=== PATIENT | female | born 1995 | race African-American/Black ===

== ENCOUNTER 2019-04-21 19:18 | Inpatient (IN) ==
[2019-04-21] MEDS ORDERED: DUONEB (A & A) INH ONE (19:49)
[2019-04-21 20:14] LABS: BE 3.9 mmoll (-3.0-3.0); BLOOD TYPE ARTERIAL; HCO3-(ACT) 27.8 mmoll (20.0-26.0); METHB 1.2 % (0.0-1.5); O2(CT) 13.6 mL/dL (15.0-23.0); PCO2(98.6) 37 mmHg (35-45); PO2(98.6) 56 mmHg (60-100); SAMPLE BLOOD; SAO2 93.6 % (95.0-100.0); THB 10.7 g/dL (11.5-17.4); pH(98.6) 7.48 (7.35-7.45)
[2019-04-21 20:15] LABS: ALLEN TEST YES; MODALITY CANNULA
--- NOTE | 2019-04-21 20:16 | Diag Imaging Result Doc PS360 ---
EXAM: CHEST-2 VIEWS HISTORY: SOB TECHNIQUE: Two views COMPARISON: 01/24/2015 FINDINGS: Poor inspiratory effort. There are dense bilateral infiltrates. No cardiomegaly. There may be tiny effusions. IMPRESSION: Multifocal bilateral pneumonia. Electronically signed by Jake Irene 04/21/2019 8:13 PM
[2019-04-21] MEDS ORDERED: ROCEPHIN 2 GM in NS 50 ML IV ONE (20:25)
[2019-04-21] MEDS ORDERED: ROCEPHIN 1 GM in NS 50 ML IV ONE (20:25)
[2019-04-21 20:29] LABS: BASO# 0.02 X1000 (0.0-0.2); BASO% 0.3 % (0.0-0.8); HEMATOCRIT 31.1 % (37.0-47.0); HEMOGLOBIN 10.2 g/dL (12.0-16.0); IMM GRAN# 0.01 X1000 (0.0-0.04); IMM GRAN% 0.2 % (0.0-0.5); LYMPH# 1.29 X1000 (1.2-3.4); LYMPH% 21.9 % (20.5-51.1); MCH 26.8 PG (27-31); MCHC 32.8 g/dL (33-37); MCV 81.8 FL (81-99); MONO# 0.34 X1000 (0.11-0.59); MONO% 5.8 % (1.7-9.3); MPV 10.1 FL (7.4-10.4); NEUT# 4.24 X1000 (1.4-6.5); NEUT% 71.8 % (42.2-75.2); PLT 225 X1000 (130-400); RDW 13.4 % (11.5-14.5)
[2019-04-21 20:44] LABS: INR 1.05; PROTIME 14.2 Seconds (11.0-16.0)
[2019-04-21 20:45] LABS: PTT 31.2 Seconds (22.3-41.8)
--- NOTE | 2019-04-21 20:46 | PROVIDER DOCUMENTATION ---
This chart was entered by Faith Loredo Scribe, acting as scribe for Aysha Leyva CRNP. HPI-Respiratory General - General Chief Complaint: Shortness of Breath Stated Complaint: SOB Time Seen by Provider: 04/21/19 19:48 Source: patient, family Allergies/Adverse Reactions: Patient Allergies Allergy/AdvReac Type Severity Reaction Status Date / Time No Known Allergies Allergy Verified 04/21/19 19:32 Home Medications: Home Medication List Medication Instructions Recorded Confirmed Last Taken Type Gabapentin 1 cap PO TID 07/09/17 04/21/19 Unknown History Metformin [Glucophage] 1,000 mg PO BID CC 07/09/17 04/21/19 Unknown History Carvedilol [Coreg] 3.125 mg PO BID 04/21/19 04/21/19 Unknown History Cholecalciferol (Vitamin D3) 1,250 mcg PO DIRECTED 04/21/19 04/21/19 Unknown History [Vitamin D3] - History of Present Illness-Resp Nature of Presenting Problem: 24 YOF WITH PMH OF DM AND HTN PRESENTS WITH C/O FEELING WORSE, SOB AFTER DX OF URI. C/O FEVER, COUGH, WEAKNESS, CHILLS, SOB Quality of Pain: reports: aching, tightness Severity in ED: reports: severe Onset/Duration: reports: gradual, 2 days ago Timing: reports: still present, constant, getting worse Context: reports: recent URI Cough Quality/Degree: reports: moderate, dry cough Current Respiratory Medication Therapy: Initiated see nurses note Modifying Factors: worse with: exertion, coughing Associated Symptoms: reports: cough, fever/chills, shortness of breath, wheezing Similar Symptoms Previously?: Yes Recently seen or treated by another doctor?: Yes Review of Systems - Adult - REVIEW OF SYSTEMS - ADULT Constitutional: reports: see HPI, fever. denies: chills Eyes: reports: no symptoms reported. denies: see HPI, discharge, dry eyes, decreased vision, blurred vision, double vision, eye pain, redness, other Ears, Nose, Mouth & Throat: reports: no symptoms reported. denies: see HPI, ear discharge, ear pain, hearing loss, tinnitus, epistaxis, sinus problem, nose pain, loose teeth, mouth/dental pain, mouth swelling, hoarseness, throat pain, throat swelling, other Cardiovascular: reports: see HPI. denies: syncope Respiratory: reports: see HPI, cough, shortness of breath, wheezing. denies: no symptoms reported, chronic cough, dyspnea on exertion, excessive sputum production, hemoptysis, pleurisy, other Gastrointestinal: reports: no symptoms reported. denies: abdominal pain, diarrhea, nausea, vomiting Genitourinary: reports: no symptoms reported. denies: see HPI, dysuria, discharge, frequency, flank pain, frequent UTI's, hematuria, hesitency, incontinence, urinary retention, urgency, other Musculoskeletal: reports: no symptoms reported. denies: see HPI, bone pain, ba ck pain, frequent leg cramps, joint pain, joint swelling, muscle aches, muscle weakness, neck pain, other Integumentary: reports: no symptoms reported. denies: see HPI, hives, hair loss, itching, mole changes, nail changes, rash, skin sores/ulcer, skin thickening, other Neurological: reports: see HPI Psychiatric: reports: no symptoms reported. denies: see HPI, anxiety, anti- depressant use, alcohol/drug dependence, depression, emotional problems, insomnia, panic attacks, suicidal thoughts, other Endocrine: reports: no symptoms reported. denies: see HPI, change in skin pigment, excessive sweating, goiter, cold intolerance, heat intolerance, increased hunger, increased thirst, polyuria, other Hematologic/Lymphatic: reports: no symptoms reported. denies: see HPI, blood clots, easy bruising, low blood count, lymphedema, prolonged bleeding, swollen lymph nodes, transfusions, other Allergic/Immunologic: reports: no symptoms reported. denies: see HPI, allergic reactions, allergic rhinitis, asthma, eczema, food allergy, frequent infections, hay fever, hives, positive PPD, urticaria, other All Other Systems: Reviewed and Negative Past History - Adult - PAST MEDICAL HISTORY-ADULT Review of Records: reports: Old Records Reviewed, Nursing Assessment Review, Medications Reviewed, Social history reviewed & non-contributory. Major Childhood Illnesses: reports: denies history Cardiovascular: reports: HTN Respiratory: reports: denies history Gastrointestinal: reports: denies history Obstetrical/Gynecological: reports: denies history Genitourinary: reports: denies history Musculoskeletal: reports: denies history Neurological: reports: denies history Endocrine/Immune: reports: Diabetes Other Conditions: reports: denies history - PRIOR SURGERIES/PROCEDURES Surgical/Procedure History: reports: cholecystectomy, tonsillectomy, other (left knee about 2009 last 2010) - IMMUNIZATION STATUS Childhood Immunizations: See Nurse Assessment Flu Vaccine: See Nurse Assessment - FAMILY HISTORY Family History: reviewed, not pertinent - SOCIAL HISTORY Smoking: quit less than 1 year Substance Use: denies Living Situation: family Physical Exam-General - PHYSICAL EXAM-ADULT Initial Vital Signs Reviewed: Yes (Temp 102.6; HR 126; O2 81 RA) - CONSTITUTIONAL General Appearance: alert, mild distress, obese - EYES Eyes: PERRL/EOMI, pink conjunctivae - HEAD, EARS, NOSE, MOUTH & THROAT HENMT: normocephalic/atraumatic, moist mucous membranes, normal ENT inspection - NECK Neck: non-tender, full range of motion, supple, normal inspection - RESPIRATORY Respiratory: crackles (bilateral), wheezing (bilateral) - CARDIOVASCULAR Cardiovascular: normal peripheral pulses, tachycardia - GASTROINTESTINAL (ABDOMEN) Abdominal Exam: normal bowel sounds, non tender, soft, no organomegaly, no pulsatile mass - LYMPHATIC Lymphatic: no adenopathy - MUSCULOSKELETAL Back Exam: normal inspection, no CVA tenderness, no vertebral tenderness Extremity: normal range of motion, non-tender, normal gait, normal inspection, no pedal edema, no calf tenderness - SKIN Integumentary: normal color, normal turgor, warm/dry - NEUROLOGIC Neurologic: grossly normal. negative: abnormal gait, aphasia, facial droop - PSYCHIATRIC Psych/Mental Status: normal mood/affect, normal thought content, normal thought process, oriented x 3 Progress - PLAN OF CARE/RESULTS Progress/Plan/Lab Results: Vital Signs - 8 hr 04/21/19 19:28 04/21/19 20:04 Temperature 102.6 F H Pulse Rate 126 H 121 H Respiratory Rate 20 18 Blood Pressure 164/103 O2 Sat by Pulse Oximetry 81 L 90 L Laboratory Results - last 24 hr 04/21/19 04/21/19 04/21/19 20:01 20:14 20:14 WBC 5.90 RBC 3.80 L Hgb 10.2 L Hct 31.1 L MCV 81.8 MCH 26.8 L MCHC 32.8 L RDW Std Deviation 13.4 Plt Count 225 MPV 10.1 Immature Gran % (Auto) 0.2 Neut % (Auto) 71.8 Lymph % (Auto) 21.9 Crisp % (Auto) 5.8 Eos % (Auto) 0.0 Baso % (Auto) 0.3 Immature Gran # (Auto) 0.01 Neut # (Auto) 4.24 Lymph # (Auto) 1.29 Crisp # (Auto) 0.34 Eos # (Auto) 0.00 Baso # (Auto) 0.02 PT INR PTT (Actin FS) Specimen Type ARTERIAL Sample Site L RADIAL pH 7.48 H pCO2 37 pO2 56 L HCO3 27.8 H Base Excess 3.9 H Oxyhemoglobin 90.0 L ABG O2 Sat (Calculated) 13.6 L ABG O2 Saturation 93.6 L ABG Carboxyhemoglobin 2.60 H ABG Methemoglobin 1.2 Vel Test YES A-a O2 Difference 97.0 Total Hemoglobin 10.7 L Lactate 1.90 Liter Flow 2.0 Blood Gas Modality CANNULA FiO2 % 28.0 Sodium 139 Potassium 3.4 L Chloride 98 Carbon Dioxide 25 Anion Gap 16 BUN 5 L Creatinine 0.7 Estimated GFR/1.73 m2 > 60 BUN/Creatinine Ratio 7 Glucose 167 H Calculated Osmolality 279 Calcium 8.7 L Magnesium 1.0 L* Total Bilirubin 0.60 AST 24 ALT 42 H Alkaline Phosphatase 46 Creatine Kinase 300 H Creatine Kinase Index 0.3 CK-MB (CK-2) 1.00 Troponin T High Sens [id number] Pept Total Protein 7.0 Albumin 4.1 Globulin 3.0 Albumin/Globulin Ratio 1.0 Plasma Lactate Urine Source Urine Color Urine Turbidity Urine pH Ur Specific [place] Urine Protein Ur Glucose (Stick) Ur Ketones (Stick) Urine Blood Urine Nitrite Urine Bilirubin Urobilinogen Dipstick Urine Leukocytes Acetone Level 04/21/19 04/21/19 04/21/19 20:14 20:14 20:14 WBC RBC Hgb Hct MCV MCH MCHC RDW Std Deviation Plt Count MPV Immature Gran % (Auto) Neut % (Auto) Lymph % (Auto) Crisp % (Auto) Eos % (Auto) Baso % (Auto) Immature Gran # (Auto) Neut # (Auto) Lymph # (Auto) Crisp # (Auto) Eos # (Auto) Baso # (Auto) PT 14.2 INR 1.05 PTT (Actin FS) 31.2 Specimen Type Sample Site pH pCO2 pO2 HCO3 Base Excess Oxyhemoglobin ABG O2 Sat (Calculated) ABG O2 Saturation ABG Carboxyhemoglobin ABG Methemoglobin Vel Test A-a O2 Difference Total Hemoglobin Lactate Liter Flow Blood Gas Modality FiO2 % Sodium Potassium Chloride Carbon Dioxide Anion Gap BUN Creatinine Estimated GFR/1.73 m2 BUN/Creatinine Ratio Glucose Calculated Osmolality Calcium Magnesium Total Bilirubin AST ALT Alkaline Phosphatase Creatine Kinase Creatine Kinase Index CK-MB (CK-2) Troponin T High Sens 6 [id number]-[id number] Pept Total Protein Albumin Globulin Albumin/Globulin Ratio Plasma Lactate Urine Source Urine Color Urine Turbidity Urine pH Ur Specific [place] Urine Protein Ur Glucose (Stick) Ur Ketones (Stick) Urine Blood Urine Nitrite Urine Bilirubin Urobilinogen Dipstick Urine Leukocytes Acetone Level NEGATIVE 04/21/19 04/21/19 04/21/19 20:14 20:14 22:15 WBC RBC Hgb Hct MCV MCH MCHC RDW Std Deviation Plt Count MPV Immature Gran % (Auto) Neut % (Auto) Lymph % (Auto) Crisp % (Auto) Eos % (Auto) Baso % (Auto) Immature Gran # (Auto) Neut # (Auto) Lymph # (Auto) Crisp # (Auto) Eos # (Auto) Baso # (Auto) PT INR PTT (Actin FS) Specimen Type Sample Site pH pCO2 pO2 HCO3 Base Excess Oxyhemoglobin ABG O2 Sat (Calculated) ABG O2 Saturation ABG Carboxyhemoglobin ABG Methemoglobin Vel Test A-a O2 Difference Total Hemoglobin Lactate Liter Flow Blood Gas Modality FiO2 % Sodium Potassium Chloride Carbon Dioxide Anion Gap BUN Creatinine Estimated GFR/1.73 m2 BUN/Creatinine Ratio Glucose Calculated Osmolality Calcium Magnesium Total Bilirubin AST ALT Alkaline Phosphatase Creatine Kinase Creatine Kinase Index CK-MB (CK-2) Troponin T High Sens [id number]-Bdgapwlmpdi Pept 250 H Total Protein Albumin Globulin Albumin/Globulin Ratio Plasma Lactate 2.0 Urine Source CLEAN CATCH Urine Color YELLOW Urine Turbidity CLEAR Urine pH 6.5 Ur Specific [place] 1.021 Urine Protein 300 A Ur Glucose (Stick) NEGATIVE Ur Ketones (Stick) NEGATIVE Urine Blood SMALL A Urine Nitrite POSITIVE A Urine Bilirubin NEGATIVE Urobilinogen Dipstick NORMAL Urine Leukocytes NEGATIVE Acetone Level Orders Category Date Time Status Cardiac Monitoring DIRECTED Care 04/21/19 19:35 Active IV Insertion ORDERED Care 04/21/19 19:35 Completed Notify MD of + Sepsis Screen NOW Care 04/21/19 19:35 Active Notify Physician As Ordered Care 04/21/19 19:35 Active cxr [CHEST-2 VIEWS] [RAD] Stat Exams 04/21/19 19:51 Completed ABG [RESP] Routine Lab 04/21/19 20:01 Completed ACETONE SERUM [CHEM] Stat Lab 04/21/19 20:14 Completed BLOOD CULTURE [BLDCUL] Stat Lab 04/21/19 20:14 Results BNP [PRO B-NATRIURETIC PEPTIDE] Stat Lab 04/21/19 20:14 Completed CBC WITH DIFF [HEME] Stat Lab 04/21/19 20:14 Completed CK PROFILE [SP CHEM] Stat Lab 04/21/19 20:14 Completed COMPREHENSIVE METABOLIC PANEL [CHEM] Stat Lab 04/21/19 20:14 Completed LACTATE, PLASMA [CHEM] Lab 04/21/19 20:14 Completed LACTATE, PLASMA [CHEM] Lab 04/21/19 22:45 Uncollected LACTATE, PLASMA [CHEM] Lab 04/22/19 01:45 Uncollected MAGNESIUM [CHEM] Stat Lab 04/21/19 20:14 Completed PROTIME WITH INR [COAG] Stat Lab 04/21/19 20:14 Completed PTT [COAG] Stat Lab 04/21/19 20:14 Completed TROPONIN T HIGH SENSITIVITY Stat Lab 04/21/19 20:14 Completed URINALYSIS W/POSS RFLX CULT [URINALYSIS] Stat Lab 04/21/19 22:15 Results 0.9% Sodium Chloride Inj [Ns] 50 ml Med 04/21/19 22:35 Discontinued .ROUTE As directed Albuterol 2.5MG/Ipratrop 0.5MG [Duoneb (A & A)] Med 04/21/19 19:49 Discontinued 3 ml INH NOW ONE CefTRIAXONE [Rocephin] Med 04/21/19 22:35 Discontinued 1 gm .ROUTE .STK-MED ONE CefTRIAXONE [Rocephin] 1 gm Med 04/21/19 20:25 Discontinued 0.9% Sodium Chloride Inj [Ns] 50 ml IV NOW CefTRIAXONE [Rocephin] 2 gm Med 04/21/19 20:25 Discontinued 0.9% Sodium Chloride Inj [Ns] 50 ml IV NOW Magnesium Sulfate 2 gm/S.w.i. Med 04/21/19 21:42 Discontinued 2 gm in 50 ml IV NOW Aerosol Treatments Routine Oth 04/21/19 19:49 Completed Aerosol Treatments Stat Oth 04/21/19 19:49 Completed Oxygen Device Stat Oth 02/08/20 19:35 Active Result Diagrams: 04/21/19 20:14 04/21/19 20:14 - REASSESSMENT Reassessment #1 Time Reassessed: 20:15 Status: unchanged Reassessment Comment: KAYCE at bedside discussing POC - XRAY 1 XRAY Study: Chest Impression: See EMR Report (EXAM: CHEST-2 VIEWS HISTORY: SOB TECHNIQUE: Two views COMPARISON: 01/24/2015 FINDINGS: Poor inspiratory effort. There are dense bilateral infiltrates. No cardiomegaly. There may be tiny effusions. IMPRESSION: Multifocal bilateral pneumonia. Electronically signed by Jake Irene 04/21/2019 8:13 PM 04/21/192012 Interpreting Physician: Jake Irene MD Dictated Date/Time: 04/21/192012 cc: Aysha Leyva; None,PCP) - CONSULTS/PCP/HOSPITALIST Notification #1 *Consult/PCP/Hospitalist*: Dr. Conrad Time Discussed: 22:16 Consult Disposition: Admit Departure - Departure Date of Disposition Decision: 04/21/19 Time of Disposition Decision: 22:45 DIAGNOSIS: Hypoxia, Pneumonia, Hypomagnesemia, UTI (urinary tract infection) Disposition: HOME 01 Certified Medical Emergency: Emergent Condition: Stable Referrals and Follow-Ups: None,PCP [Primary Care Provider] - - Critical Care Note This patient required my direct & personal management of CC.: No Attestation - Physician/ KAYCE Attestation Patient care was provided by Advanced Practice Provider:: Yes Advanced Practice Provider:: Aysha Leyva Advanced Practice Provider documentation review:: The Mid-level provider documentation, treatment plan and medical decision making was reviewed by the physician who agrees with all treatment and medical decision making by the MLP. The physician spent face to face time with patient:: No Advanced Practice Provider documentation review:: Supervising physician onsite and consulted in the evaluation and care of this patient. The physician did not have a face to face encounter with the patient. This chart was documented by the indicated scribe, (Faith Loredo Scribe) and accurately reflects the services I performed and decisions made by me, Aysha Leyva CRNP, as attested by the provider's signature.
[2019-04-21 20:53] LABS: ESTIMATED GFR > 60
[2019-04-21 21:41] LABS: AGAP 16; ALBUMIN 4.1 g/dL (3.5-5.0); BUN 5 mg/dL (8-22); CALCIUM 8.7 mg/dL (8.8-10.2); CHLORIDE 98 mmol/L (98-107); CK PROFILE 300 U/L (24-173); COSMO 279; CREATININE 0.7 mg/dL (0.5-0.9); GLUCOSE 167 mg/dL (70-104); GOT 24 U/L (10-30); GPT 42 U/L (10-36); POTASSIUM 3.4 mmol/L (3.5-5.1); SODIUM 139 mmol/L (136-145); TCO2 25 mmol/L (25-35)
[2019-04-21] MEDS ORDERED: MAGNESIUM SULFATE 2 GM/S.W.I. 2 GM/50 ML IVPB IV ONE (21:42)
[2019-04-21 22:08] LABS: ALKALINE PHOSPHATASE 46 U/L (32-104)
[2019-04-21 22:10] LABS: CK INDEX 0.3 (0.0-2.5)
[2019-04-21 22:26] LABS: URINE SOURCE CLEAN CATCH
[2019-04-21] MEDS ORDERED: ROCEPHIN ONE (22:35)
[2019-04-21] MEDS ORDERED: NS 50 ML ONE (22:35)
[2019-04-21 22:44] LABS: BILIRUBIN URINE NEGATIVE (NEGATIVE); BLOOD URINE SMALL (NEGATIVE); COLOR YELLOW; GLUCOSE URINE NEGATIVE (NEGATIVE); KETONE URINE NEGATIVE (NEGATIVE); LEUKOCYTES URINE NEGATIVE (NEGATIVE); NITRITE URINE POSITIVE (NEGATIVE); PH URINE 6.5; PROTEIN URINE 300 mg/dL (NEGATIVE); SP GRAVITY URINE 1.021; TURBIDITY URINE CLEAR (CLEAR); UROBILINOGEN URINE NORMAL (NORMAL)
[2019-04-21 22:45] LABS: UR EPITHELIAL CELLS <10 /HPF (<10); URINE BACTERIA 4+ /HPF; URINE RBC <10 /HPF (<10); URINE WBC <10 /HPF (<10)
[2019-04-21] MEDS ORDERED: TYLENOL PO ONE (22:46)
[2019-04-21] MEDS ORDERED: NS 1,000 ML IV ONE (22:46)
[2019-04-21] MEDS ORDERED: TYLENOL PO PRN (22:46)
[2019-04-21] MEDS: DUONEB (A & A) INH SCH (23:04)
[2019-04-22] MEDS ORDERED: SOLU-MEDROL IV ONE (00:24)
[2019-04-22] MEDS ORDERED: COREG PO ONE (00:41)
[2019-04-22 00:51] LABS: BE 4.6 mmoll (-3.0-3.0); BLOOD TYPE ARTERIAL; HCO3-(ACT) 28.4 mmoll (20.0-26.0); METHB 1.6 % (0.0-1.5); O2(CT) 13.4 mL/dL (15.0-23.0); O2HB 91.5 % (95.0-99.0); PCO2(98.6) 37 mmHg (35-45); PO2(98.6) 61 mmHg (60-100); SAMPLE BLOOD; SAO2 95.1 % (95.0-100.0); THB 10.4 g/dL (11.5-17.4); pH(98.6) 7.49 (7.35-7.45)
[2019-04-22 00:52] LABS: ALLEN TEST NO; MODALITY CANNULA
[2019-04-22] MEDS ORDERED: COREG ONE (01:31)
[2019-04-22] MEDS: DUONEB (A & A) INH SCH ×6 (03:02→23:00)
[2019-04-22] MEDS ORDERED: HUMALOG SUBQ SCH (07:00)
[2019-04-22] MEDS ORDERED: HUMALOG (PARKWAY) ONE (07:46)
[2019-04-22 10:29] LABS: HEMATOCRIT 31.6 % (37.0-47.0); HEMOGLOBIN 10.2 g/dL (12.0-16.0); MCH 26.4 PG (27-31); MCHC 32.3 g/dL (33-37); MCV 81.7 FL (81-99); MPV 10.8 FL (7.4-10.4); RBC 3.87 XMIL (4.2-5.4); RDW 13.3 % (11.5-14.5); WBC 6.19 X1000 (4.8-10.8)
[2019-04-22 10:55] LABS: AGAP 16; ALBUMIN 3.9 g/dL (3.5-5.0); ALKALINE PHOSPHATASE 49 U/L (32-104); BUN 6 mg/dL (8-22); CALCIUM 8.2 mg/dL (8.8-10.2); CHLORIDE 99 mmol/L (98-107); COSMO 288; CREATININE 0.5 mg/dL (0.5-0.9); ESTIMATED GFR > 60; GLUCOSE 288 mg/dL (70-104); GOT 34 U/L (10-30); GPT 47 U/L (10-36); MAGNESIUM 1.4 mg/dL (1.5-2.7); SODIUM 140 mmol/L (136-145); TCO2 25 mmol/L (25-35); TOTAL PROTEIN 7.4 g/dL (6.3-8.3)
[2019-04-22] MEDS: ROCEPHIN 1 GM in NS 50 ML IV SCH (11:52)
[2019-04-22] MEDS: NEURONTIN PO SCH ×3 (11:52→21:35)
[2019-04-22] MEDS: ZITHROMAX PO SCH (11:53)
[2019-04-22] MEDS ORDERED: NEURONTIN PO SCH (13:00)
[2019-04-22] MEDS: HUMALOG (PARKWAY) SUBQ SCH ×3 (13:31→21:35)
[2019-04-22] MEDS: GLUCOPHAGE PO SCH (17:23)
--- NOTE | 2019-04-22 19:04 | HISTORY AND PHYSICAL ---
CHIEF COMPLAINT: Shortness of breath with cough and fever. HISTORY OF PRESENT ILLNESS: This is a 24-year-old female with a history of diabetes type 2, hypertension, who presents to the emergency room complaining of shortness of breath for the last 48 hours. She stated that it has progressively gotten worse. She had along with fevers, a productive cough, chills. PAST MEDICAL HISTORY: Is diabetes mellitus type 2, hypertension, and neuropathy. PAST SURGICAL HISTORY: Cholecystectomy, tonsillectomy, adenoidectomy. SOCIAL HISTORY: She denies any tobacco or illicit drug use. She does drink alcohol occasionally socially. ALLERGIES: No known drug allergies. HOME MEDICATIONS: Coreg, vitamin D3, gabapentin, and metformin. REVIEW OF SYSTEMS: Discussed with patient with pertinent positives stated in the HPI. She denied any syncope or dizziness, any chest pain or palpitations, a productive cough, hemoptysis, any nausea, vomiting, diarrhea, constipation, any black or bloody vomitus or stools, hematuria, dysuria, frequency, urgency. PHYSICAL EXAMINATION: GENERAL: This is a 24-year-old female who is sitting up on the bedside in no distress. VITAL SIGNS: Blood pressure is 142/80 with a heart rate of 80, respirations are 16, temperature is 98.6 degrees oral with O2 saturations that are 96 to 97 percent on 4 L nasal cannula. EYES: Pupils are equal, round, react to light. EOMs are intact. Sclerae are anicteric. HEENT: Head is normocephalic, atraumatic. Mucous membranes are moist. NECK: Supple with trachea midline. CARDIOVASCULAR: Regular rate and rhythm. S1 and S2 appreciated. She has no lower extremity edema. Calves are nontender bilateral with peripheral pulses palpable x4 extremities. PULMONARY: Breath sounds are diminished throughout. Chest rises and falls symmetric with respiration. Chest wall is nontender to palpation. GASTROINTESTINAL: Abdomen is soft, nontender, nondistended with bowel sounds in all 4 quadrants. GENITOURINARY: No CVA or suprapubic tenderness. NEUROLOGIC: She is alert and oriented x3. SKIN: Warm and dry. LABS: WBC is 6.1 with hemoglobin 10.2, hematocrit 31.6, and platelets of 253,000. Sodium 140, potassium 4, BUN 6, creatinine 0.5 with a glucose of 288. Magnesium is 1.4. Acetone is negative. Urinalysis is positive for nitrite with less than 10 microscopic red blood cells, white blood cells and epithelial cells. ABGs: PH is 7.49 with a pCO2 of 37, PO2 of 61, and bicarbonate of 28.4. This is on 4 L nasal cannula. Chest x-ray revealed multifocal bilateral pneumonia. ASSESSMENT AND PLAN: 1. Bilateral pneumonia. Blood cultures were obtained in the emergency room. She was given Rocephin, which we will continue. We will add azithromycin and further antibiotics will be culture driven. 2. Hypoxemic respiratory failure. We will continue with supplemental oxygen and follow. We will add incentive spirometer q.4 hours. 3. Diabetes mellitus type 2. Identify her home medications and continue as appropriate at pattern blood glucose with sliding scale insulin. 4. Hypomagnesemia. We will replete, trend labs and treat as appropriate. 5. Possible urinary tract infection. We will add antibiotics as above and further antibiotics will be culture driven. 6. Hypertension. We will continue her home medications. 7. Neuropathy. Aware. 8. For deep vein thrombosis prophylaxis we will use sequential compression devices and have the patient up in the chair. The plan was discussed with Dr. Guzman. Further treatments pending hospital course. Dictated by RADHA Russell for Bright Guzman MD cc: RADHA Russell MD
[2019-04-22] MEDS: COREG PO SCH (21:35)
[2019-04-22] MEDS ORDERED: CHLORASEPTIC SPRAY MT PRN (21:38)
--- NOTE | 2019-04-23 00:44 | HISTORY AND PHYSICAL ---
ADDENDUM: Patient is a morbidly obese 24-year-old female who presented to the hospital with increased cough, congestion, increased work of breathing. She has got a history of diabetes, hypertension. We are going to place her on antibiotics. Her magnesium is low. We are going to replace this. Use breathing treatments. Her O2 saturation was 81% on room air when she initially presented to the ER, currently is 90% on 2 L. She does have pneumonia. We will use antibiotics and we will follow. cc: Bright Guzman MD
[2019-04-23] MEDS: DUONEB (A & A) INH SCH ×6 (03:23→22:42)
[2019-04-23] MEDS: NEURONTIN PO SCH ×3 (06:25→21:43)
[2019-04-23] MEDS: HUMALOG (PARKWAY) SUBQ SCH ×4 (06:25→21:43)
[2019-04-23 06:40] LABS: HEMATOCRIT 29.6 % (37.0-47.0); HEMOGLOBIN 9.4 g/dL (12.0-16.0); MCH 26.2 PG (27-31); MCHC 31.8 g/dL (33-37); MCV 82.5 FL (81-99); MPV 10.4 FL (7.4-10.4); RBC 3.59 XMIL (4.2-5.4); RDW 13.4 % (11.5-14.5); WBC 6.9 X1000 (4.8-10.8)
[2019-04-23 07:03] LABS: AGAP 13; ALBUMIN 3.7 g/dL (3.5-5.0); ALKALINE PHOSPHATASE 46 U/L (32-104); BUN 10 mg/dL (8-22); CALCIUM 8.4 mg/dL (8.8-10.2); CHLORIDE 102 mmol/L (98-107); COSMO 286; CREATININE 0.5 mg/dL (0.5-0.9); ESTIMATED GFR > 60; GLUCOSE 161 mg/dL (70-104); GOT 32 U/L (10-30); GPT 46 U/L (10-36); MAGNESIUM 1.6 mg/dL (1.5-2.7); POTASSIUM 3.6 mmol/L (3.5-5.1); SODIUM 142 mmol/L (136-145); TCO2 27 mmol/L (25-35)
[2019-04-23] MEDS: GLUCOPHAGE PO SCH ×2 (10:09→17:45)
[2019-04-23] MEDS: ROCEPHIN 1 GM in NS 50 ML IV SCH (10:09)
[2019-04-23] MEDS: ZITHROMAX PO SCH (10:10)
[2019-04-23] MEDS: COREG PO SCH ×2 (10:10→21:43)
--- NOTE | 2019-04-23 20:22 | PROGRESS NOTE ---
DATE: 04/23/2019 SUBJECTIVE: Patient notes that she is starting to feel a little bit better. Her cough, although productive, is improving. She denies any fevers or chills. EXAM: Vital signs: Temperature 98 degrees, pulse 95, respiratory rate 18, BP 125/68. General: The patient is a morbidly obese female who currently is in mild respiratory distress. She is awake, alert. She is sitting up on the bed. She is talking to her mom. HEENT: Normocephalic. Neck: Supple. Cardiovascular: Regular rate. Chest: Clear, nonlabored. Abdomen: Soft, nondistended. Extremities: Moves all extremities. Neurologic: No changes. ASSESSMENT: 1. Bilateral pneumonia, improved air movement bilaterally, although difficult to hear secondary to body habitus. She does not currently have any wheezing or crackles. 2. Diabetes. 3. Morbid obesity. 4. Hypomagnesemia, resolved. 5. Urinary tract infection growing gram-negative rods. Continue antibiotics until culture returns. 6. Hypertension. PLAN: We will continue the patient in the hospital. We will attempt to wean off her oxygen as tolerated. Continue antibiotics. Further orders as needed. Hopefully, she can discharge home over the next 1 or 2 days if her symptoms continue to improve. cc: Bright Guzman MD
[2019-04-24] MEDS: DUONEB (A & A) INH SCH ×6 (02:56→22:53)
[2019-04-24] MEDS: NEURONTIN PO SCH ×3 (06:24→21:19)
[2019-04-24] MEDS: HUMALOG (PARKWAY) SUBQ SCH ×4 (06:25→21:19)
[2019-04-24] MEDS: ZITHROMAX PO SCH (09:39)
[2019-04-24] MEDS: GLUCOPHAGE PO SCH ×2 (09:39→16:38)
[2019-04-24] MEDS: ROCEPHIN 1 GM in NS 50 ML IV SCH (09:39)
[2019-04-24] MEDS: COREG PO SCH ×2 (09:39→21:19)
--- NOTE | 2019-04-25 00:14 | PROGRESS NOTE ---
DATE: 04/24/2019 SUBJECTIVE: The patient overall notes that she is feeling a lot better. Still having some shortness of breath and coughing, but this is improved. Denies any fevers, chills. Denies cough, congestion. PHYSICAL EXAMINATION: Vital Signs: Reviewed. She is afebrile. She is still on oxygen, we are going to continue to try to wean this off. Overall symptoms have improved. HEENT: Normocephalic. Neck: Supple. Cardiovascular: Regular rate. Chest: Clear, nonlabored although distant secondary to her body habitus. Abdomen: Soft, obese, nondistended. Extremities: Moves all extremities. ASSESSMENT: 1. Bilateral pneumonia. 2. Hypoxic respiratory failure. 3. Gram-negative farrah urinary tract infection. 4. Hypomagnesemia. 5. Diabetes. 6. Morbid obesity. 7. Hypertension. PLAN: We will continue patient in the hospital. Hopefully, we can wean her off oxygen today. If so, she can discharge home tomorrow. We are still waiting on urine culture. We will adjust as needed. cc: Bright Guzman MD
[2019-04-25] MEDS: DUONEB (A & A) INH SCH ×3 (03:46→10:57)
[2019-04-25 06:02] VITALS: BP 124/72
[2019-04-25] MEDS: HUMALOG (PARKWAY) SUBQ SCH ×2 (06:10→11:38)
[2019-04-25] MEDS: NEURONTIN PO SCH (06:13)
[2019-04-25] MEDS: ZITHROMAX PO SCH (09:30)
[2019-04-25] MEDS: GLUCOPHAGE PO SCH (09:30)
[2019-04-25] MEDS: COREG PO SCH (09:30)
--- NOTE | 2019-04-25 09:30 | Diag Imaging Result Doc PS360 ---
EXAM: CHEST-2 VIEWS HISTORY: hypoxia TECHNIQUE: PA and Lateral chest x-ray COMPARISON: 04/21/2019 FINDINGS: There is cardiomegaly. Bilateral alveolar infiltrates have improved from prior study. There are small bilateral effusions. There are long-standing reduced lung volumes. IMPRESSION: Improving bilateral alveolar infiltrates. Electronically signed by Mamta Groves 04/25/2019 9:27 AM
[2019-04-25] MEDS: ROCEPHIN 1 GM in NS 50 ML IV SCH (09:31)
--- NOTE | 2019-04-26 11:33 | DISCHARGE SUMMARY ---
ADMISSION DATE: 04/21/2019 DISCHARGE DATE: 04/25/2019 ADMITTING DIAGNOSES: 1. Bilateral pneumonia. 2. Hypoxic respiratory failure. 3. Diabetes mellitus type 2. 4. Hypomagnesemia. 5. Possible urinary tract infection. 6. Hypertension. 7. Neuropathy. DISCHARGE DIAGNOSES: 1. Bilateral pneumonia. 2. Hypoxic respiratory failure. 3. Gram-negative farrah urinary tract infection. 4. Hypomagnesemia. 5. Diabetes. 6. Morbid obesity. 7. Hypertension. PROCEDURES AND FINDINGS: Chest x-ray done on 04/21/2019 shows multifocal bilateral pneumonia. Chest x-ray done on 04/25/2019 shows improving bilateral alveolar infiltrates. Urine culture shows Klebsiella pneumonia. Blood cultures are negative. HOSPITAL COURSE: Ms. Kong is a 24-year-old female who presents to the emergency room with complaints of shortness of breath for the past 48 hours that has progressively gotten worse, along with fevers and productive cough with chills. The patient was diagnosed with bilateral pneumonia with a chest x-ray that showed multifocal bilateral pneumonia. She was started on Rocephin and azithromycin, supplemental O2, incentive spirometer. The patient was noted to have hypermagnesemia. IV replacement was ordered. The patient was complaining of suprapubic tenderness. Nitrites were positive in her urinalysis. She was started on IV antibiotics for possible UTI. Urine culture was obtained. Culture did come back positive for Klebsiella pneumoniae. The patient has been weaned off her oxygen. Her condition has continued to improve. She is being discharged home today. She will continue on p.o. antibiotics of Keflex and Zithromax. She will need to follow up with her primary care physician in 1 to 2 weeks or sooner if needed. DISCHARGE MEDICATIONS: 1. Coreg 3.125 mg p.o. b.i.d. 2. Gabapentin 300 mg p.o. t.i.d. 3. Glucophage 1000 mg p.o. b.i.d. 4. Vitamin D3, 1250 mcg p.o. every Tuesday for 8 weeks. 5. Keflex 500 mg p.o. t.i.d. 6. Zithromax 500 mg p.o. daily. DISCHARGE DIET: The patient is to continue her diabetic diet as tolerated. DISCHARGE ACTIVITY: The patient is to resume activity as tolerated. DISCHARGE DISPOSITION: The patient is discharged home with self-care. FOLLOWUP: She is to follow up with her primary care physician in 1 to 2 weeks, or sooner if needed. If she does not have a primary care physician, she is to call the physician referral line at [phone] for a list of providers currently accepting new patients. For all other questions or concerns, she is to contact her primary care physician. Dictated by RADHA Rowe for Bright Guzman MD cc: Bright Guzman MD
--- NOTE | 2019-04-27 08:34 | DISCHARGE SUMMARY ---
ADMISSION DATE: 04/21/2019 DISCHARGE DATE: 04/25/2019 The patient is seen and examined by myself. [*] improved. States that she is feeling better. Therefore, we will discharge her home. Please see full [*] cc: Bright Guzman MD
== END 2019-04-25 13:35 | disposition home or self-care (01) | DRG 193 ==
LOC: P.ED 19:18 → P.EDIPHOLD 04-22 00:26 → P.MEDSURG 04-22 08:25
PROVIDERS: ATTEND Family Medicine